=== PATIENT | male | born 1955 | race Caucasian/White ===

== ENCOUNTER 2024-02-24 11:05 | Emergency (ER) | payer MEDICARE, BC, SELFPAY ==
[2024-02-24 11:07] VITALS: BP 174/86
--- NOTE | 2024-02-24 12:16 | ED.GENMED ---
History of Present Illness
<Mark Pollard, DO - Last Filed: 02/24/24 12:24>
General
Chief Complaint: Skin Surface Trauma
Time Seen by Provider: 02/24/24 11:23
<Bradley Guajardo MD, Resident - Last Filed: 02/24/24 12:26>
General
Source: patient
History of Present Illness
History of Present Illness:
HPI:
68 yo Male presenting to the ED today after sustaining a R-hand injury while working at home earlier today. Patient presented with nail stab acute traumatic injury to his R-Index Finger at the PIP Joint level with associated retained foreign body.
At the time of evaluation patient denied any pain and stated he previously visit an urgent care center where he was administered local anesthetic into his R-Index Finger area and was informed to subsequently present to the ED.
ROS was negative for any constitutional symptoms.
Past History
<Bradley Guajardo MD, Resident - Last Filed: 02/24/24 12:26>
Past History
ED Past Medical History: HTN and Other ( herniated disks); Negative Asthma, Hypercholesterolemia or NIDDM
ED Past Surgical History: Orthopedic (Back surgery for Herniated disc)
Social History
Tobacco: Non-smoker
Alcohol: Daily (Beer 2-3)
Drug: None
Personal:
Living: with family
Employment: Employed (construction)
Family History
Family History: Other (Not pertinent to pt visit)
Review of Systems
<Bradley Guajardo MD, Resident - Last Filed: 02/24/24 12:26>
Review of Systems
All Other Systems: ROS reviewed and negative except as documented in HPI and ROS
Phy Exam
<Bradley Guajardo MD, Resident - Last Filed: 02/24/24 12:26>
General Physical Exam
General Presentation: well appearing and moderate distress
General age: appears stated age
General Skin: warm and dry
General Mental: alert
Neurological Exam
Neurological Exam: oriented x3, no motor deficits, no sensory deficits and speech normal
Musculoskeletal Exam
Musculoskeletal Exam: full ROM, joint swelling, neuro vasc intact and other (Right - First Hand Digit PIP Joint Are Injury noted with associated Retained foreign body )
Skin Exam
Skin Exam: normal color, warm/dry, no petechia, laceration (Pinpoint Entry laceration at R- Hand/First Digit PIP Joint area), redness (Mild) and tenderness
Psychiatric Exam
Psychiatric Exam: normal mood/affect
Course
<Mark Pollard, DO - Last Filed: 02/24/24 12:24>
Orders/Labs/Results
Orders:
Orders
02/24/24 11:14
Finger(s)/Thumb 2 View Rt [CR Finger(s)/thumb Min 2 Vw Rt] Urgent
Comment:
Reason For Exam: finger impaled by nail
Indicate Which Finger:: Index Finger
02/24/24 11:57
CR Finger(s)/thumb Min 2 Vw Rt Urgent
Comment:
Reason For Exam: eval for retained wire
02/24/24 11:58
Splints/Slings/Crut- Treatment ONCE
Crutches: No
Location: Right
Type of Splint: Volar
Vital Signs
Initial and Last Documented VS:
Initial Vital Signs
Temp Pulse Resp BP Pulse Ox
36.6 C 64 16 174/86 99
02/24/24 11:07 02/24/24 11:07 02/24/24 11:07 02/24/24 11:07 02/24/24 11:07
Last Documented Vital Signs
Temp Pulse Resp BP Pulse Ox
36.6 C 64 16 174/86 99
02/24/24 11:07 02/24/24 11:07 02/24/24 11:07 02/24/24 11:07 02/24/24 11:07
<Bradley Guajardo MD, Resident - Last Filed: 02/24/24 12:26>
Orders/Labs/Results
Orders:
Orders
02/24/24 11:14
Finger(s)/Thumb 2 View Rt [CR Finger(s)/thumb Min 2 Vw Rt] Urgent
Comment:
Reason For Exam: finger impaled by nail
Indicate Which Finger:: Index Finger
02/24/24 11:57
CR Finger(s)/thumb Min 2 Vw Rt Urgent
Comment:
Reason For Exam: eval for retained wire
02/24/24 11:58
Splints/Slings/Crut- Treatment ONCE
Crutches: No
Location: Right
Type of Splint: Volar
Vital Signs
Initial and Last Documented VS:
Initial Vital Signs
Temp Pulse Resp BP Pulse Ox
36.6 C 64 16 174/86 99
02/24/24 11:07 02/24/24 11:07 02/24/24 11:07 02/24/24 11:07 02/24/24 11:07
Last Documented Vital Signs
Temp Pulse Resp BP Pulse Ox
36.6 C 64 16 174/86 99
02/24/24 11:07 02/24/24 11:07 02/24/24 11:07 02/24/24 11:07 02/24/24 11:07
Procedures
<Mark Pollard DO - Last Filed: 02/24/24 12:24>
Foreign Body Removal-Skin
Wound explored and foreign body removed?: Yes
Anesthesia: other (Digital block with 1% lidocaine)
Foreign body removed using: forceps
Foreign body removed: partially
<Bradley Guajardo MD, Resident - Last Filed: 02/24/24 12:26>
*Critical Care Note
Total Time (30-74mins, 75-104mins- exclusive of procedures): ~40 Min.
ED Attending Note
<Mark Pollard DO - Last Filed: 02/24/24 12:24>
ED Attending Note
Patient seen and examined by attending physician: Yes
I performed the substantive portion of visit, reviewed & personally made and approve the management plan that is documented in note by myself or JOSE G.: Yes
I performed a history and physical exam of patient and discussed management with resident, I reviewed resident's note and agree with documented findings and plan of care.: Yes
ED Attending Note:
I evaluated the patient at bedside. I was unable to push the screw forward and instead pulled the screw out�wire remains on repeat imaging. I discussed with Dr. Farris who recommends following up with Dr. Baig or Dr. Xiao. He also
recommends volar splinting.
<Bradley Guajardo MD, Resident - Last Filed: 02/24/24 12:26>
-
Portions of this chart may have been created with voice recognition software.� Occasional wrong word or��sound alike� substitutions may have occurred due to the inherent limitations of voice recognition software.
Discharge Plan
Departure
Patient Disposition: Home (Routine Discharge)
Patient with high blood pressure during this ER visit?: Yes
Discharge Problem:
Foreign body finger
Instructions: Foreign Body in Skin (DC)
Prescriptions:
New
cephalexin 500 mg capsule
500 mg PO TID Qty: 15 0RF
No Action
lisinopril 20 MG tablet
20 mg PO DAILY
hydrocodone-acetaminophen 1 TABLET tablet
1 - 2 tab PO Q4HPRN PRN (Reason: moderate to severe pain) Qty: 20 0RF
Referrals:
Gurjit Witt MD [Family Provider] -
Estrada Xiao MD [Active] - Follow up in 2-3 days
Edward Baig MD [COVERAGE] - Follow up in 2-3 days
Activity Restrictions/Additional Instructions:
I notified one of the orthopedic doctors, Dr. Farris who recommends we place you in a volar splint to help prevent any complications from potential flexor tendon injury. He recommends you follow-up with either Dr. Baig or Dr. Xiao. The small
pieces of wire do remain on the repeat x-ray therefore I am placing you on antibiotics to prevent infection.
Interventions
Interventions:
*Risk Screen - Suicide Last Done: 02/24/24 11:08
*General Assessment Last Done: 02/24/24 11:12
*Neglect/Abuse Screening Last Done: 02/24/24 11:08
*ED COVID-19 Vaccine History Last Done: 02/24/24 11:12
ED-Skin Assessment Last Done: 02/24/24 11:12
Discharge Date and Time
Print Language: ITALIAN
[2024-02-24 12:34] VITALS: BP 147/90
== END 2024-02-24 12:38 | disposition home or self-care (01) ==
LOC: EMR 11:05
PROVIDERS: EMERGENCY PHYSICIAN Emergency Medicine; FAMILY PHYSICIAN Family Medicine
DX: S61.220A Laceration with foreign body of right index finger without damage to nail, initial encounter (principal); M79.5 Residual foreign body in soft tissue; W45.0XXA Nail entering through skin, initial encounter; I10 Essential (primary) hypertension
CPT/HCPCS: 99291; 10120; 73140

== ENCOUNTER → 2024-04-28 06:49 | Outpatient (REF) | payer MEDICARE, BC, SELFPAY | LOC: MRI 3T 06:49 | PROVIDERS: ATTENDING PHYSICIAN Orthopaedic Surgery; PRIMARYCARE PHYSICIAN Family Medicine | DX: M25.551 Pain in right hip (principal) | CPT/HCPCS: 73721 ==